=== PATIENT | male | born 1960 | race Caucasian/White ===

== ENCOUNTER 2019-08-21 12:38 | Emergency (ER) | payer MEDICARE, MEDICAID, SELFPAY ==
[2019-08-21 13:05] VITALS: BP 110/73; PULSE 85; RESP 16; TEMP 37.5; O2SAT 98; BMI 18.6
[2019-08-21 14:48] LABS: Basophils % 0.2 %; Hematocrit 42.3 % (42.0-52.0); Hemoglobin 13.9 g/dL (11.7-16.6); Lymphocytes # 1.3 10^3/uL (0.8-4.8); Lymphocytes % 8.3 %; Mean Corpuscular HGB Conc 32.9 g/dL (30.0-36.0); Mean Corpuscular Hemoglobin 28.8 pg (28.0-34.0); Mean Corpuscular Volume 87.8 fL (80-94); Mean Platelet Volume 9.1 fL (7.4-10.4); Monocytes # 0.7 10^3/uL (0.2-0.9); Monocytes % 4.7 %; Neutrophils # 13.7 10^3/uL (1.8-7.7); Neutrophils % 86.4 %; Nucleated Red Blood Cells % 0 %; Platelet Count 225 10^3/cmm (130-400); Red Blood Count 4.82 10^6/uL (4.1-5.3); Red Cell Distribution Width 12.9 % (12.1-15.1); White Blood Count 15.8 10^3/uL (4.0-10.0)
--- NOTE | 2019-08-21 15:11 | W.ED.MALEGU ---
HPI - Male Genitourinary General: Chief complaint: Urogenital-Male Stated complaint: uti Time Seen by Provider: 08/21/19 15:10 Source: patient and family Mode of arrival: ambulatory Limitations: no limitations History of Present Illness: HPI Narrative: Patient is a very nice 59-year-old male who presents to ED today with complaint of urinary retention starting yesterday. Patient tells me by this morning he was in extreme discomfort so sought evaluation at his PCP office. He states they placed a Streeter catheter and sent patient to the emergency department for further evaluation. Patient tells me he is having pain to bilateral testicles and the tip of his penis. He is complaining about dysuria. He does have a known history of BPH and normally does have to strain in order to urinate (states he must sit down and lean forward) and has had to previously self cath. He is supposed to be taking Flomax but has not been. He at one point was following up with Dr. Tellez however has not seen him in quite a while. states patient was running fevers yesterday of up to 102. MD Complaint: testicle pain, dysuria and other (urinary retention) Duration: constant Location: penis, right testicle and left testicle Quality: burning Relieving factors: other (slightly improved after streeter placement ) Associated symptoms: Reports dysuria and nausea; Deny hematuria Review of Systems Const: Reports: fever(s) (reported by ; afebrile here); Denies: chills or body aches Card: Denies: chest pain or palpitations Resp: Denies: dyspnea or productive cough GI: Reports: abdominal pain and nausea; Denies: diarrhea, constipation, change in bowel habits, pain on defecation, rectal pain, rectal swelling, rectal itching, change in stool character, hematochezia, melena or white/light colored stool : Reports: difficulty urinating, dysuria, urinary dribbling, testicular pain and other (urinary retention); Denies: flank pain, hematuria, genital lesions, penile discharge, testicular mass or scrotal swelling Musc: Denies: neck pain or back pain Skin/Breast: Denies: rash Neuro: Denies: headache(s), numbness in extremities, weakness in extremities or sensory changes PFS ED PFSH: Medical History (Updated 08/24/19 @ 04:42 by Maurizio Adam Pa, DO) Acute prostatitis Back pain BPH (benign prostatic hyperplasia) Cyst of spinal meninges Fracture of thumb, right, closed Hematuria Hip pain Insomnia Nausea and vomiting Neuralgia pudendal and sacral Normal colonoscopy 2013 Dr. Delarosa Statin intolerance Testicular pain Urinary retention Please placed Streeter catheter 08/28 Surgical History (Updated 08/24/19 @ 00:29 by Frankie Rand MD) H/O elbow surgery Right elbow reconstruction H/O thumb surgery Family History (Updated 08/24/19 @ 00:22 by Frankie Rand MD) Denies family history of Hyperlipidemia Lung disease Hypertension Social History (Updated 08/24/19 @ 01:23 by Frankie Rand MD) Smoking and tobacco status: former smoker Alcohol intake: never Substance/Drug Use: never Household members: spouse Housing: House Physical Exam Const: COMMON NORMALS: average body habitus, patient oriented x3, no limitations, healthy appearing, alert and well nourished GENERAL APPEARANCE: cooperative ORIENTATION/CONSCIOUSNESS: Yes oriented to person, Yes oriented to place and Yes oriented to time OTHER: appears uncomfortable HENMT: COMMON NORMALS: normocephalic and atraumatic HEAD & SCALP: normocephalic and atraumatic Resp: COMMON NORMALS: normal respiratory effort and clear to auscultation bilaterally AUSCULTATION: clear to auscultation bilaterally Cardio: COMMON NORMALS: regular rate and regular rhythm RATE: regular rate RHYTHM: regular rhythm GI: COMMON NORMALS: Normal to inspection, nondistended, normoactive bowel sounds present, Soft to palpation, non-tender, No hepatosplenomegaly present and no masses PALPATION: Yes Soft to palpation and Yes No hepatosplenomegaly present RECTAL EXAM: Yes prostate abnormal (firm extremely tender prostate ) : COMMON NORMALS: Yes no CVA tenderness BLADDER/KIDNEY EXAM: Yes catheter in place and Yes no CVA tenderness PENIS: normal penis MEATUS: meatus normal and other (has streeter placed currently) SCROTUM: Yes testes descended bilaterally TESTES: Yes testicular lie normal and No testicular swelling Back/Pelvis: COMMON NORMALS: no CVA tenderness Extremity: COMMON NORMALS: no clubbing, cyanosis or edema and no pedal edema Neuro: MIRI COMA SCALE: document GCS findings Miri coma scale eye opening: Spontaneous [place] coma scale verbal response: Orientated [place] coma scale motor response: Obey commands Miri coma scale total score: 15 COMMON NORMALS: patient oriented x3 SENSORIUM/ORIENTATION: Yes alert, Yes oriented to person, Yes oriented to place and Yes oriented to time Skin: COMMON NORMALS: no rashes or lesions noted GENERAL SKIN EXAM: no rashes or lesions noted Course Consultations: Consultation #1: Dr. Tellez-agrees with IV Levaquin given here; stated if patient is not septic he can be treated at home and recommends PO 750mg Levaquin, pain/nausea meds, and he will see early next week for re-evaluation Vital Signs: Vital signs: Vital Signs Temperature 99.5 F 08/21/19 13:05 Pulse Rate 71 08/21/19 17:46 Respiratory Rate 12 08/21/19 17:46 Blood Pressure 125/80 08/21/19 17:46 Pulse Oximetry 97 08/21/19 17:46 MDM - Male Lab Data: Labs: Lab Results 08/21/19 08/21/19 08/21/19 Range/Units 14:30 14:30 14:30 WBC 15.8 H (4.0-10.0) 10^3/ uL RBC 4.82 (4.1-5.3) 10^6/u L Hgb 13.9 (11.7-16.6) g/dL Hct 42.3 (42.0-52.0) % MCV 87.8 (80-94) fL MCH 28.8 (28.0-34.0) pg MCHC 32.9 (30.0-36.0) g/dL RDW 12.9 (12.1-15.1) % Plt Count 225 (130-400) 10^3/c mm MPV 9.1 (7.4-10.4) fL Neut % (Auto) 86.4 % Lymph % (Auto) 8.3 % [place] % (Auto) 4.7 % Eos % (Auto) 0.0 % Baso % (Auto) 0.2 % Neut # (Auto) 13.7 H (1.8-7.7) 10^3/u L Lymph # (Auto) 1.3 (0.8-4.8) 10^3/u L [place] # (Auto) 0.7 (0.2-0.9) 10^3/u L Eos # (Auto) 0.0 (0.0-0.8) 10^3/u L Baso # (Auto) 0.0 (0.0-0.1) 10^3/u L Nucleated RBC % (a uto) 0 % Nucleated RBCs # 0.0 /100WBC Sodium 137 (136-145) mmol/L Potassium 3.8 (3.5-5.1) mmol/L Chloride 98 (98-107) mmol/L Carbon Dioxide 24 (22-29) mmol/L Anion Gap 18.8 (5-19) BUN 13 (6-20) mg/dL Creatinine 1.0 (0.7-1.2) mg/dL GFR Calculation 77.0 L (90-130) mL/min Glucose 113 (65-115) mg/dL Calculated Osmolal ity 281 L (285-295) mOsm/k g Lactate 1.6 (0.5-2.2) mmol/L Calcium 10.3 (8.5-10.5) mg/dL Total Bilirubin 0.9 (0.15-1.2) mg/dL AST 15 (0-40) U/L ALT 6 (0-41) U/L Alkaline Phosphata se 97 (40-130) IU/L Total Protein 7.9 (6.6-8.7) g/dL Albumin 4.7 (3.5-5.2) g/dL Globulin 3.2 (1.3-4.6) g/dL Urine Color (Yellow) Urine Appearance (CLEAR) Urine pH (5-7) Ur Specific Gravit y (1.005-1.030) Urine Protein (Negative) Urine Glucose (UA) (Normal) Urine Ketones (Negative) Urine Blood (Negative) Urine Nitrate (Negative) Urine Bilirubin (NEGATIVE) Urine Urobilinogen (Negative) mg/dL Ur Leukocyte Samantha ase (Negative) Urine RBC (0-2) /hpf Urine WBC (0-5) /hpf Ur Squamous Epith Cells (0-5) Amorphous Sediment Urine Bacteria (NONE) 08/21/19 Range/Units 15:18 WBC (4.0-10.0) 10^3/ uL RBC (4.1-5.3) 10^6/u L Hgb (11.7-16.6) g/dL Hct (42.0-52.0) % MCV (80-94) fL MCH (28.0-34.0) pg MCHC (30.0-36.0) g/dL RDW (12.1-15.1) % Plt Count (130-400) 10^3/c mm MPV (7.4-10.4) fL Neut % (Auto) % Lymph % (Auto) % [place] % (Auto) % Eos % (Auto) % Baso % (Auto) % Neut # (Auto) (1.8-7.7) 10^3/u L Lymph # (Auto) (0.8-4.8) 10^3/u L [place] # (Auto) (0.2-0.9) 10^3/u L Eos # (Auto) (0.0-0.8) 10^3/u L Baso # (Auto) (0.0-0.1) 10^3/u L Nucleated RBC % (a uto) % Nucleated RBCs # /100WBC Sodium (136-145) mmol/L Potassium (3.5-5.1) mmol/L Chloride (98-107) mmol/L Carbon Dioxide (22-29) mmol/L Anion Gap (5-19) BUN (6-20) mg/dL Creatinine (0.7-1.2) mg/dL GFR Calculation (90-130) mL/min Glucose (65-115) mg/dL Calculated Osmolal ity (285-295) mOsm/k g Lactate (0.5-2.2) mmol/L Calcium (8.5-10.5) mg/dL Total Bilirubin (0.15-1.2) mg/dL AST (0-40) U/L ALT (0-41) U/L Alkaline Phosphata se (40-130) IU/L Total Protein (6.6-8.7) g/dL Albumin (3.5-5.2) g/dL Globulin (1.3-4.6) g/dL Urine Color Dark yellow (Yellow) Urine Appearance Cloudy (CLEAR) Urine pH 5 (5-7) Ur Specific Gravit y 1.015 (1.005-1.030) Urine Protein 1+ H (Negative) Urine Glucose (UA) Norm (Normal) Urine Ketones 2+ H (Negative) Urine Blood 3+ H (Negative) Urine Nitrate Positive H (Negative) Urine Bilirubin 1+ H (NEGATIVE) Urine Urobilinogen 1 H (Negative) mg/dL Ur Leukocyte Samantha ase 2+ H (Negative) Urine RBC 25-40 H (0-2) /hpf Urine WBC Too numerous to c nt H (0-5) /hpf Ur Squamous Epith Cells 0-4 H (0-5) Amorphous Sediment 2+ Urine Bacteria 2+ H (NONE) Discharge Plan Discharge Patient Disposition: Home, Self-Care Clinical Impression: Acute prostatitis, Urinary retention Condition: Stable Prescriptions: New levofloxacin [Levaquin] 750 mg tablet 750 mg PO DAILY 7 Days Qty: 7 RF: 0 hydrocodone-acetaminophen 7.5-325 mg tablet 1 tab PO Q6H PRN (Reason: pain) Qty: 15 RF: 0 ondansetron HCl [Zofran] 4 mg tablet 4 mg PO Q6H PRN (Reason: nausea and vomiting) Qty: 14 RF: 0 No Action tamsulosin [Flomax] 0.4 mg capsule 0.4 mg PO DAILY RF: 0 trazodone 150 mg tablet 150 mg PO BEDTIME RF: 0 gabapentin 800 mg tablet See Rx Instructions .ROUTE .COMPLEX RF: 0 metronidazole 500 mg tablet 500 mg PO Q8H 7 Days Qty: 21 RF: 0 Discharge Orders: Discharge Order (Routine); Ordered 08/21/19 Ordered By: Becky Jara Referrals: Eleanor Clark MD [Primary Care Provider] - Patient Instructions: Prostatitis (Acute), Urinary Retention Activity Restrictions/Additional Instructions: As discussed case management should contact you tomorrow and set you up with your appointment to see Dr. Tellez. You need to return to the emergency department immediately for worsening fevers, generally feeling ill, vomiting or inability to keep down your antibiotics, your Streeter catheter not draining appropriately, or any other concerns you may have. Discharge Date/Time: 08/21/19 17:47 Coding Level of Care Code ED Capital Equipment Specialist for Kayla Fwzach Exam Comprehensive
[2019-08-21 15:14] VITALS: BP 122/87; PULSE 76; RESP 23; O2SAT 99
[2019-08-21] MEDS: sodium chloride 0.9% 1,000 ML 999 ML IV (15:27)
[2019-08-21 15:28] VITALS: RESP 16
[2019-08-21] MEDS: ondansetron 2 mg/ML SDV 2 mL 4 MG IVP (15:28)
[2019-08-21] MEDS: morphine 4 mg/mL SDV 1 mL IVP (15:28)
[2019-08-21 15:30] VITALS: BP 130/85; PULSE 72; RESP 17; O2SAT 98
[2019-08-21 15:33] LABS: Lactate (Lactic Acid level) 1.6 mmol/L (0.5-2.2)
[2019-08-21 15:35] LABS: Alanine Aminotransferase 6 U/L (0-41); Albumin Level 4.7 g/dL (3.5-5.2); Alkaline Phosphatase 97 IU/L (40-130); Anion Gap 18.8 (5-19); Aspartate Amino Transferase 15 U/L (0-40); Blood Urea Nitrogen 13 mg/dL (6-20); Calcium 10.3 mg/dL (8.5-10.5); Carbon Dioxide 24 mmol/L (22-29); Chloride 98 mmol/L (98-107); Globulin 3.2 g/dL (1.3-4.6); Glucose 113 mg/dL (65-115); Osmolality Calculated 281 mOsm/kg (285-295); Potassium 3.8 mmol/L (3.5-5.1); Sodium 137 mmol/L (136-145); Total Bilirubin 0.9 mg/dL (0.15-1.2); Total Protein 7.9 g/dL (6.6-8.7)
[2019-08-21 15:57] LABS: Bilirubin Urine 1+ (NEGATIVE); Blood Urine 3+ (Negative); Glucose Urine UA Norm (Normal); Ketones Urine 2+ (Negative); Leukocyte Esterase Urine 2+ (Negative); Nitrate Urine Positive (Negative); Protein Urine 1+ (Negative); Specific Gravity, Urine 1.015 (1.005-1.030); Urine Appearance Cloudy (CLEAR); Urine Color Dark Yellow (Yellow); Urobilinogen Urine 1 mg/dL (Negative); pH Urine 5 (5-7)
[2019-08-21 16:07] LABS: Add Urine Culture? Yes; Amorphous Sediment Urine 2+; Bacteria Urine 2+; RBC Urine 25-40 /hpf (0-2); Squamous Epithelial Cell Urine 0-4 (0-5); WBC Urine TOO NUMEROUS TO CNT /hpf (0-5)
[2019-08-21] MEDS: levofloxacin-dextrose 5 % 500 MG/100 ML PREMIX 100 MG IV (16:30)
[2019-08-21 16:31] VITALS: BP 130/81; PULSE 77; RESP 13; O2SAT 97
[2019-08-21 17:46] VITALS: BP 125/80; PULSE 71; RESP 12; O2SAT 97
--- NOTE | 2019-08-25 10:36 | DCPLANNER ---
corporate quality assurance manager had message to schedule a follow up appointment for patient with Dr. Tellez. corporate quality assurance manager called the office of Dr. Tellez, spoke with Oma, gave clinic patients information. corporate quality assurance manager was told that patients information would be printed and reviewed. Clinic will call patient with appointment information.
--- NOTE | 2019-08-26 08:37 | DCPLANNER ---
Patient has a follow up appointment scheduled for Sunday, September 03, 2019 at 3:15. Clinic will call patient with appointment information.
--- NOTE | 2019-09-04 14:57 | DCPLANNER ---
Patient did attend appointment scheduled for 09.03.[address] Tellez.
== END 2019-08-21 17:47 | disposition home or self-care (01) ==
PROVIDERS: Emergency Provider Physician Assistant; PCP Family Medicine
DX: N41.0 Acute prostatitis (principal); R33.9 Retention of urine, unspecified; Z87.891 Personal history of nicotine dependence
CPT/HCPCS: 12345; 36415; 51798; 80053; 81001; 81003; 83605; 84153; 85025; 87040; 87077; 87086; 87186; 96365; 96375; 99283; 99284; J1956; J2270; J2405; J7030

== ENCOUNTER 2019-08-23 21:28 | Inpatient (IN) | payer MEDICARE, MEDICAID, SELFPAY ==
[2019-08-23 21:39] VITALS: BP 129/80; PULSE 65; RESP 16; TEMP 37.5; O2SAT 98; BMI 18.6
--- NOTE | 2019-08-23 21:47 | XRR_ITS ---
PROCEDURE INFORMATION: Exam: XR Chest, 1 View Exam date and time: 08/23/2019 10:02 PM Age: 59 years old Clinical indication: Fever and other: Generalized weakness; Patient HX: C/O generalized weakness and fever x 2 days TECHNIQUE: Imaging protocol: XR of the chest Views: 1 view. COMPARISON: No relevant prior studies available. FINDINGS: Lungs: Unremarkable. No consolidation. Pleural space: Unremarkable. No pleural effusion. No pneumothorax. Heart/Mediastinum: Unremarkable. No cardiomegaly. Bones/joints: Unremarkable. XR/XR chest 1V portable [id number] IMPRESSION: No acute findings.
--- NOTE | 2019-08-23 21:55 | CTR_ITS ---
PROCEDURE INFORMATION: Exam: CT Abdomen And Pelvis With Contrast Exam date and time: 08/23/2019 10:03 PM Age: 59 years old Clinical indication: Fever and nausea; Patient HX: C/O fever, nausea, weakness, groin pain x 2 days; Additional info: Abd pain fever TECHNIQUE: Imaging protocol: Computed tomography of the abdomen and pelvis with intravenous contrast. Radiation optimization: All CT scans at this facility use at least one of these dose optimization techniques: automated exposure control; mA and/or kV adjustment per patient size (includes targeted exams where dose is matched to clinical indication); or iterative reconstruction. Contrast material: OMNI 300; Contrast volume: 95 ml; Contrast route: INTRAVENOUS (IV); COMPARISON: US Renal Kidney Structu* [id number] 06/28/2015 7:57 AM RADIATION DOSE METRICS: Total DLP (mGy-cm): 538.8 FINDINGS: Tubes, catheters and devices: A balloon bladder catheter is present. Lungs: There is subpleural atelectasis of the dependent portions of the lungs. Liver: There is a diffuse decrease in hepatic parenchymal density, consistent with fatty infiltration. Gallbladder and bile ducts: There is no common bile duct dilation. Pancreas: Normal. No ductal dilation. Spleen: Normal. No splenomegaly. Adrenals: Normal. No mass. Kidneys and ureters: There is no evidence of hydronephrosis. There is no evidence of renal calcifications. Stomach and bowel: There there is marked wall thickening and edema of the distal stomach and duodenum concerning for duodenitis. There is a small amount of fluid adjacent to the duodenum and stomach which is probable reactive change. There is no evidence of intestinal perforation or obstruction. There is no evidence of colitis/diverticulitis. Some of the loops of small bowel in the lower abdomen and pelvis are slightly distended with fluid with mild wall thickening compatible with mild enteritis. Appendix: No evidence of appendicitis. Intraperitoneal space: There is no free intraperitoneal air. Vasculature: The aorta demonstrates mild atherosclerotic calcification. Lymph nodes: Unremarkable.No enlarged lymph nodes. Bladder: The bladder is decompressed.A normal appendix is identified. Reproductive: Unremarkable as visualized. Bones/joints: There are [id number] degenerative changes in the spine. No acute abnormality. Soft tissues: Unremarkable. CT/CT abdomen pelvis w con* [id number] IMPRESSION: 1. There there is marked wall thickening and edema of the distal stomach and duodenum concerning for severe duodenitis. There is adjacent small amount of fluid but no free air or perforation. 2. Some of the loops of small bowel in the lower abdomen and pelvis are slightly distended with fluid with mild wall thickening compatible with mild enteritis. The remaining loops of bowel have an appropriate appearance. Radiation Dose CTDIVOL = (mGy): DLP = 538.8 (mGy-cm)
--- NOTE | 2019-08-23 21:58 | ED_ITS ---
HPI - Fever General: Chief Complaint: Fever Stated Complaint: GENERAL WEAKNESS/ FEVER Time Seen by Provider: 08/23/19 21:42 History of Present Illness: HPI Narrative: 59-year-old male. He was here 2 days ago complaining of urinary retention, and fever. He was diagnosed with acute prostatitis. He returns today with continued fevers, and inability to tolerate oral intake including his medication. He is very uncomfortable. He states his belly feels swollen and painful. His Hough bag is draining appropriately he says. He is vomited multiple times today. MD elicited complaint: fever, weakness and other (abdominal pain) Onset (ago): day(s) Relieving factors: nothing Associated symptoms: Reports abdominal pain, dysuria, nausea and vomiting; Deny chills, chest pain, confusion, diarrhea, headache(s), short of breath or sinus pain Review of Systems Const: Denies: fever(s) or chills Eyes: Denies: change in vision or blurry vision ENMT: Denies: odynophagia, swelling of lips/tongue, bleeding gums, dental pain, change in hearing, epistaxis, post nasal drip or sinus pain Card: Denies: chest pain, palpitations, irregular heart rhythm, edema, swelling of feet/ankles, dyspnea on exertion or orthopnea Resp: Denies: dyspnea, productive cough, non-productive cough or wheezing GI: Reports: abdominal pain, nausea and vomiting; Denies: diarrhea : Reports: dysuria Musc: Denies: neck pain, back pain, joint redness or joint warmth Skin/Breast: Denies: rash, pruritus or erythema Neuro: Denies: headache(s), dizziness, vertigo, confusion or seizure-like activity Psych: Denies: anxiety PFS ED PFSH: Medical History (Updated 08/24/19 @ 04:42 by Maurizio Winn DO) Acute prostatitis Back pain BPH (benign prostatic hyperplasia) Cyst of spinal meninges Fracture of thumb, right, closed Hematuria Hip pain Insomnia Nausea and vomiting Neuralgia pudendal and sacral Normal colonoscopy 2013 Dr. Delarosa Statin intolerance Testicular pain Urinary retention Please placed Hough catheter 08/28 Surgical History (Updated 08/24/19 @ 00:29 by Frankie Rand MD) H/O elbow surgery Right elbow reconstruction H/O thumb surgery Family History (Updated 08/24/19 @ 00:22 by Frankie Rand MD) Denies family history of Hyperlipidemia Lung disease Hypertension Social History (Updated 08/24/19 @ 01:23 by Frankie Rand MD) Smoking and tobacco status: former smoker Alcohol intake: never Substance/Drug Use: never Household members: spouse Housing: House Physical Exam Const: GENERAL APPEARANCE: well developed ORIENTATION/CONSCIOUSNESS: Yes oriented to person, Yes oriented to place and Yes oriented to time HENMT: COMMON NORMALS: normocephalic, external ears normal and Normal external nose present HEAD & SCALP: normocephalic; no scalp tenderness FACE & SINUS: normal facial exam NOSE: Normal external nose present and No nasal discharge present EXTERNAL EAR: Yes external ears normal Eye: COMMON NORMALS: Equal, round and reactive pupils present, EOMs intact bilaterally and conjunctivae normal EYELID: eyelids normal CONJUNCTIVA: Yes conjunctivae normal PUPIL: Yes Equal, round and reactive pupils present Neck/C-Spine: GENERAL: No tracheal deviation Chest: COMMONS NORMALS: normal inspection of the chest CHEST: No tenderness Resp: COMMON NORMALS: clear to auscultation bilaterally EFFORT & INSPECTION: No tachypneic, No respiratory distress, No retractions, No uses accessory muscles and No tracheal deviation AUSCULTATION: clear to auscultation bilaterally, no rhonchi, no wheezes and lung sounds not diminished Cardio: COMMON NORMALS: regular rate and regular rhythm RATE: regular rate RHYTHM: regular rhythm HEART SOUNDS: no murmurs PERIPHERAL PULSES: radial pulses present GI: INSPECTION: No abdominal distension AUSCULTATION: No Hyperactive bowel sounds present and No Hypoactive bowel sounds present PALPATION: Yes Tenderness to palpation present (GI) Details: LUQ, RUQ and other (Epigastric), No Guarding due to palpation present (GI) and No Rigid due to palpation PERCUSSION: no dullness to percussion and no tympanic to percussion Neuro: SENSORIUM/ORIENTATION: Yes oriented to person, Yes oriented to place and Yes oriented to time Psych: COMMON NORMALS: mental status grossly normal Skin: COMMON NORMALS: no rashes or lesions noted GENERAL SKIN EXAM: no rashes or lesions noted Course Consultations: Consultation #1: jovan Vital Signs: Vital signs: Vital Signs Temperature 98.9 F 08/24/19 02:21 Pulse Rate 53 L 08/24/19 02:21 Respiratory Rate 18 08/24/19 02:21 Blood Pressure 138/82 08/24/19 02:21 Pulse Oximetry 96 08/24/19 02:21 MDM - Fever MDM Narrative: Medical decision making narrative: Patient with prior visit, diagnosed with urinary retention, and acute prostatitis. His leg bag of his F oley continues to put out appropriate amounts of urine. His creatinine is 0.8. His urine is clearing by urinalysis. His white blood cell count is 7.5. He, however, significantly tender in his epigastrium, not necessarily his lower belly, and has been vomiting intractably today. His CT scan shows intense duodenitis. There is no perforation. The be admitted for fluid resuscitation, symptomatic treatment, and antibiotics. Hospitalist agrees. Lab Data: Labs: Lab Results 08/23/19 08/23/19 08/23/19 Range/Units 22:12 22:12 22:12 WBC 8.3 (4.0-10.0) 10^3/ uL RBC 4.09 L (4.1-5.3) 10^6/u L Hgb 12.0 (11.7-16.6) g/dL Hct 36.9 L (42.0-52.0) % MCV 90.2 (80-94) fL MCH 29.3 (28.0-34.0) pg MCHC 32.5 (30.0-36.0) g/dL RDW 12.8 (12.1-15.1) % Plt Count 195 (130-400) 10^3/c mm MPV 9.1 (7.4-10.4) fL Neut % (Auto) 71.2 % Lymph % (Auto) 18.9 % [place] % (Auto) 9.3 % Eos % (Auto) 0.2 % Baso % (Auto) 0.2 % Neut # (Auto) 5.9 (1.8-7.7) 10^3/u L Lymph # (Auto) 1.6 (0.8-4.8) 10^3/u L [place] # (Auto) 0.8 (0.2-0.9) 10^3/u L Eos # (Auto) 0.0 (0.0-0.8) 10^3/u L Baso # (Auto) 0.0 (0.0-0.1) 10^3/u L Nucleated RBC % (a uto) 0 % Nucleated RBCs # 0.0 /100WBC Sodium 139 (136-145) mmol/L Potassium 3.5 (3.5-5.1) mmol/L Chloride 102 (98-107) mmol/L Carbon Dioxide 20 L (22-29) mmol/L Anion Gap 20.5 H (5-19) BUN 10 (6-20) mg/dL Creatinine 0.8 (0.7-1.2) mg/dL GFR Calculation 99.6 (90-130) mL/min Glucose 104 (65-115) mg/dL Calculated Osmolal ity 284 L (285-295) mOsm/k g Lactate 1.4 (0.5-2.2) mmol/L Calcium 8.9 (8.5-10.5) mg/dL Total Bilirubin 0.4 (0.15-1.2) mg/dL AST 12 (0-40) U/L ALT 7 (0-41) U/L Alkaline Phosphata se 75 (40-130) IU/L C-Reactive Protein 96.1 H (0.0-4.9) mg/L Total Protein 6.8 (6.6-8.7) g/dL Albumin 3.7 (3.5-5.2) g/dL Globulin 3.1 (1.3-4.6) g/dL Urine Color (Yellow) Urine Appearance (CLEAR) Urine pH (5-7) Ur Specific Gravit y (1.005-1.030) Urine Protein Urine Glucose (UA) Urine Ketones Urine Blood Urine Nitrate Urine Bilirubin Urine Urobilinogen Ur Leukocyte Samantha ase Urine RBC (0-2) /hpf Urine WBC (0-5) /hpf Ur Squamous Epith Cells (0-5) Ur Transition Epit h Cell /hpf Amorphous Sediment Urine Bacteria (NONE) Urine Mucus 08/23/19 Range/Units 23:23 WBC (4.0-10.0) 10^3/ uL RBC (4.1-5.3) 10^6/u L Hgb (11.7-16.6) g/dL Hct (42.0-52.0) % MCV (80-94) fL MCH (28.0-34.0) pg MCHC (30.0-36.0) g/dL RDW (12.1-15.1) % Plt Count (130-400) 10^3/c mm MPV (7.4-10.4) fL Neut % (Auto) % Lymph % (Auto) % [place] % (Auto) % Eos % (Auto) % Baso % (Auto) % Neut # (Auto) (1.8-7.7) 10^3/u L Lymph # (Auto) (0.8-4.8) 10^3/u L [place] # (Auto) (0.2-0.9) 10^3/u L Eos # (Auto) (0.0-0.8) 10^3/u L Baso # (Auto) (0.0-0.1) 10^3/u L Nucleated RBC % (a uto) % Nucleated RBCs # /100WBC Sodium (136-145) mmol/L Potassium (3.5-5.1) mmol/L Chloride (98-107) mmol/L Carbon Dioxide (22-29) mmol/L Anion Gap (5-19) BUN (6-20) mg/dL Creatinine (0.7-1.2) mg/dL GFR Calculation (90-130) mL/min Glucose (65-115) mg/dL Calculated Osmolal ity (285-295) mOsm/k g Lactate (0.5-2.2) mmol/L Calcium (8.5-10.5) mg/dL Total Bilirubin (0.15-1.2) mg/dL AST (0-40) U/L ALT (0-41) U/L Alkaline Phosphata se (40-130) IU/L C-Reactive Protein (0.0-4.9) mg/L Total Protein (6.6-8.7) g/dL Albumin (3.5-5.2) g/dL Globulin (1.3-4.6) g/dL Urine Color [place] (Yellow) Urine Appearance Clear (CLEAR) Urine pH 7 (5-7) Ur Specific Gravit y 1.015 (1.005-1.030) Urine Protein Not Reportable Urine Glucose (UA) Not Reportable Urine Ketones Not Reportable Urine Blood Not Reportable Urine Nitrate Not Reportable Urine Bilirubin Not Reportable Urine Urobilinogen Not Reportable Ur Leukocyte Samantha ase Not Reportable Urine RBC 80-100 H (0-2) /hpf Urine WBC 5-10 H (0-5) /hpf Ur Squamous Epith Cells None (0-5) Ur Transition Epit h Cell None /hpf Amorphous Sediment Not Reportable Urine Bacteria 1+ H (NONE) Urine Mucus 2+ Discharge Plan Discharge Patient Disposition: Admitted As Inpatient Admit Provider: Frankie Rand Clinical Impression: Acute duodenitis Intractable vomiting Qualifiers: Vomiting type: unspecified Nausea presence: with nausea Qualified Code(s): R11.2 - Nausea with vomiting, unspecified Condition: Stable Interventions: ED Discharge Assessment Last Done: 08/24/19 01:53 ED Charges Last Done: 08/24/19 01:53 Discharge Date/Time: 08/24/19 01:54 Coding Level of Care Code ED Tax Accountant for Aprilg Fwd Exam Comprehensive
[2019-08-23 22:16] LABS: Basophils % 0.2 %; Eosinophils % 0.2 %; Hematocrit 36.9 % (42.0-52.0); Lymphocytes # 1.6 10^3/uL (0.8-4.8); Lymphocytes % 18.9 %; Mean Corpuscular HGB Conc 32.5 g/dL (30.0-36.0); Mean Corpuscular Hemoglobin 29.3 pg (28.0-34.0); Mean Corpuscular Volume 90.2 fL (80-94); Mean Platelet Volume 9.1 fL (7.4-10.4); Monocytes # 0.8 10^3/uL (0.2-0.9); Monocytes % 9.3 %; Neutrophils # 5.9 10^3/uL (1.8-7.7); Neutrophils % 71.2 %; Nucleated Red Blood Cells % 0 %; Platelet Count 195 10^3/cmm (130-400); Red Blood Count 4.09 10^6/uL (4.1-5.3); Red Cell Distribution Width 12.8 % (12.1-15.1); White Blood Count 8.3 10^3/uL (4.0-10.0)
[2019-08-23 22:29] VITALS: RESP 20
[2019-08-23] MEDS: ketorolac 30 mg/mL INJ IVP (22:29)
[2019-08-23] MEDS: morphine 4 mg/mL SDV 1 mL IVP (22:29)
[2019-08-23 22:30] VITALS: BP 145/77; PULSE 58; RESP 18; O2SAT 98
[2019-08-23] MEDS: sodium chloride 0.9% 1,000 ML 999 ML IV (22:30)
[2019-08-23] MEDS: ondansetron 2 mg/ML SDV 2 mL 4 MG IVP (22:30)
--- NOTE | 2019-08-23 22:37 | PC.NURSE ---
Pt. to CT scan via stretcher, with tech
[2019-08-23 22:39] LABS: Lactate (Lactic Acid level) 1.4 mmol/L (0.5-2.2)
[2019-08-23] MEDS: iohexol 300 mg/mL 100 mL Btl IV (22:39)
[2019-08-23 23:45] LABS: Specific Gravity, Urine 1.015 (1.005-1.030); Urine Appearance Clear (CLEAR); Urine Color Orange (Yellow); pH Urine 7 (5-7)
[2019-08-23 23:48] LABS: Add Urine Microscopic? YES
[2019-08-23 23:55] LABS: Add Urine Culture? Yes; Bacteria Urine 1+; Mucus Urine 2+; RBC Urine 80-100 /hpf (0-2)
[2019-08-24] VITALS (8 sets, daily range): BP systolic 132–164; BP diastolic 70–96; PULSE 44–56; RESP 18–20; TEMP 36.8–37.2; O2SAT 94–98
--- NOTE | 2019-08-24 00:15 | P.HP_ITS ---
Providers/Chief Complaint Primary Care Provider: Eleanor Clark MD Chief Complaint: GENERAL WEAKNESS/ FEVER History of Present Illness Mika Alexander is a 59 year old male does not carry significant past medical history other than recent acute prostatitis episode came in with chief complaint of worsening abdominal pain. Patient is stating that he has been having chronic pelvic pain which got worse recently for which she was evaluated by his PCP on , Hough catheter was placed because of urine retention he was started on Levaquin for possible prostatitis. He has taken antibiotics only for 2 days, yesterday he started experiencing loose stools, he has had multiple episodes, on his temperature was 102, on Sunday 101, he was trying to avoid coming to the hospital. Because of worsening abdominal pain and cramps he decided to come to the ED today. He has been feeling nauseous, only experienced one episode of emesis. He is denying smoking cigarettes or using marijuana. Does not drink alcohol. Today he has been afebrile. Patient is stating that he mostly stays home and he has not been exposed to sick patients. Diagnostics in the ER revealed blood pressure 159 systolic, afebrile, leukocyte 8.3, lactic 1.4, CRP 96, PSA [address] CT abdomen revealed enteritis/duodenitis without perforation or free air In the ER he received 4 mg of morphine, 1 L normal saline and Zosyn 1 dose Review of Systems Const: Reports: fever(s), chills, body aches, change in appetite, fatigue and malaise Eyes: Denies: change in vision or photophobia ENMT: Denies: throat pain Card: Denies: chest pain Resp: Denies: dyspnea GI: Reports: abdominal pain, nausea, vomiting and diarrhea : Denies: flank pain or difficulty urinating Musc: Denies: neck pain Skin/Breast: Denies: rash Neuro: Denies: headache(s) Psych: Denies: anxiety Endo: Denies: polyuria Alonso/Lymph: Denies: easy bruising All/Imm: Denies: urticaria Medications/Allergies Home Medications Medication Instructions Recorded Confirmed Last Taken Type gabapentin 800 mg tablet See Rx Instructions .ROUTE .COMPLEX 08/21/19 08/21/19 08/21/19 History hydrocodone-acetaminophen 1 tab PO Q6H PRN #15 tab 08/21/19 Unknown Rx levofloxacin [Levaquin] 750 mg PO DAILY 7 Days #7 tab 08/21/19 Unknown Rx ondansetron HCl [Zofran] 4 mg PO Q6H PRN #14 tab 08/21/19 Unknown Rx tamsulosin 0.4 mg capsule 0.4 mg PO DAILY 08/21/19 08/21/19 08/20/19 History trazodone 150 mg tablet 150 mg PO BEDTIME 08/21/19 08/21/19 08/20/19 History Allergies Allergy/AdvReac Type Severity Reaction Status Date / Time No Known Allergies Allergy Unverified 08/21/19 09:35 PFSH Acute PFSH: Medical History (Updated 08/24/19 @ 00:29 by Frankie Rand MD) Acute prostatitis Back pain BPH (benign prostatic hyperplasia) Cyst of spinal meninges Fracture of thumb, right, closed Hematuria Hip pain Insomnia Nausea and vomiting Neuralgia pudendal and sacral Normal colonoscopy 2013 Dr. Delarsoa Statin intolerance Testicular pain Urinary retention Please placed Hough catheter 08/28 Surgical History (Updated 08/24/19 @ 00:29 by Frankie Rand MD) H/O elbow surgery Right elbow reconstruction H/O thumb surgery Family History (Updated 08/24/19 @ 00:22 by Frankie Rand MD) Denies family history of Hyperlipidemia Lung disease Hypertension Social History (Updated 08/24/19 @ 01:23 by Frankie Rand MD) Smoking and tobacco status: former smoker Alcohol intake: never Substance/Drug Use: never Household members: spouse Housing: House Vitals/I&O/Wt Last Vital Signs Temp 99.5 F 08/23/19 21:39 Pulse 58 L 08/23/19 22:30 Resp 18 08/23/19 22:30 BP 145/77 08/23/19 22:30 Pulse Ox 98 08/23/19 22:30 Weight last 48 hrs Weight 58.967 kg Physical Exam Narrative: EXAM NARRATIVE: Head to toe examination Patient is laying in his bed without acute distress S1, S2 no signs of heart failure or tachycardia Abdomen has mild guarding with tenderness to deep palpation around mid epigastric and right lower quadrant area, bowel sounds present, no CVA tenderness Lungs are clear to auscultation Neurological nonfocal exam EOMI, PERRLA Skin does not transfer ischemia getting ulcer Clinically looks dehydrated Appropriate mood and affect Data : 08/23/19 22:12 08/23/19 22:12 Micro: Microbiology 08/23/19 22:13 Blood Culture - Preliminary Blood SPECIMEN COLLECTED 08/23/19 22:12 Blood Culture - Preliminary Blood SPECIMEN COLLECTED A&P Assessment and plan (1) Duodenitis: Status: Acute (2) Enteritis: Status: Acute (3) Prostatitis: Status: Acute (4) Nausea and vomiting: Status: Acute Additional A&P Information Duodenitis/enteritis Acute episode after using Levaquin for prostatitis We will rule out C. difficile as patient complained of diarrhea initially more than 3 loose stools, fever abdominal pain CT abdomen results reviewed I would use Zosyn for now Stool studies C. difficile panel N.p.o. Dextrose half-normal saline maintenance rate Prostatitis Zosyn would cover for E. coli adequately which is the most common organism in this age group, no previous history of STDs, in a monogamous relationship Currently afebrile no signs of sepsis Persistent hematuria and BPH: Hough catheter draining concentrated urine Tamsulosin, PSA 17 Outpatient follow-up with Dr. Tellez for persistent hematuria and urine retention Former smoker Full code N.p.o. DVT prophylaxis Lovenox Attestations Medical Necessity Statement*: Anticipating stay in the hospital cross more than 2 midnights currently needing IV antibiotics for duodenitis and prostatitis, Time Spent in Patient Care: (>than 50% of time spent in counselling and/or direct pt care on unit) . 50mins Coding Level of Care Code Acute Host Coordinator for [facility] Fw Diagnoses Duodenitis K29.80 Enteritis K52.9 Prostatitis N41.9 Nausea and vomiting R11.2
[2019-08-24 00:56] LABS: Alanine Aminotransferase 7 U/L (0-41); Albumin Level 3.7 g/dL (3.5-5.2); Alkaline Phosphatase 75 IU/L (40-130); Anion Gap 20.5 (5-19); Aspartate Amino Transferase 12 U/L (0-40); Blood Urea Nitrogen 10 mg/dL (6-20); C Reactive Protein 96.1 mg/L (0.0-4.9); Calcium 8.9 mg/dL (8.5-10.5); Carbon Dioxide 20 mmol/L (22-29); Chloride 102 mmol/L (98-107); Globulin 3.1 g/dL (1.3-4.6); Glomerular Filtration Rate 99.6 mL/min (90-130); Glucose 104 mg/dL (65-115); Osmolality Calculated 284 mOsm/kg (285-295); Potassium 3.5 mmol/L (3.5-5.1); Sodium 139 mmol/L (136-145); Total Bilirubin 0.4 mg/dL (0.15-1.2); Total Protein 6.8 g/dL (6.6-8.7)
[2019-08-24] MEDS: piperacillin-tazobactam 3.375 GM in sodium chloride 0.9% (plus) 50 ML IV ×2 (01:21→09:01)
[2019-08-24] MEDS: HYDROmorphone 1 mg/mL INJ 1 mL IVP (01:21)
[2019-08-24] MEDS: enoxaparin 40 mg/0.4 mL Syringe SUBCUT (02:42)
[2019-08-24] MEDS: D5-NS 0.45% + KCL 20 mEq 20 MEQ/1,000 ML BAG 75 MEQ IV (02:42)
[2019-08-24 04:18] LABS: Basophils % 0.3 %; Eosinophils % 0.3 %; Hematocrit 34.7 % (42.0-52.0); Hemoglobin 11.1 g/dL (11.7-16.6); Lymphocytes # 1.5 10^3/uL (0.8-4.8); Lymphocytes % 20.1 %; Mean Corpuscular Hemoglobin 28.7 pg (28.0-34.0); Mean Corpuscular Volume 89.7 fL (80-94); Mean Platelet Volume 10.3 fL (7.4-10.4); Monocytes # 0.7 10^3/uL (0.2-0.9); Monocytes % 9.4 %; Neutrophils # 5.2 10^3/uL (1.8-7.7); Neutrophils % 69.6 %; Nucleated Red Blood Cells % 0 %; Platelet Count 193 10^3/cmm (130-400); Red Blood Count 3.87 10^6/uL (4.1-5.3); Red Cell Distribution Width 12.8 % (12.1-15.1); White Blood Count 7.5 10^3/uL (4.0-10.0)
[2019-08-24 05:46] LABS: Alanine Aminotransferase 6 U/L (0-41); Albumin Level 3.1 g/dL (3.5-5.2); Alkaline Phosphatase 63 IU/L (40-130); Anion Gap 14.7 (5-19); Aspartate Amino Transferase 11 U/L (0-40); Blood Urea Nitrogen 10 mg/dL (6-20); Calcium 8.5 mg/dL (8.5-10.5); Carbon Dioxide 22 mmol/L (22-29); Chloride 106 mmol/L (98-107); Globulin 2.6 g/dL (1.3-4.6); Glomerular Filtration Rate 99.6 mL/min (90-130); Glucose 115 mg/dL (65-115); Osmolality Calculated 285 mOsm/kg (285-295); Potassium 3.7 mmol/L (3.5-5.1); Sodium 139 mmol/L (136-145); Total Bilirubin 0.4 mg/dL (0.15-1.2); Total Protein 5.7 g/dL (6.6-8.7)
--- NOTE | 2019-08-24 12:54 | P.PN_ITS ---
Subjective Subjective: Interval history: Admitted overnight. H&P and labs noted. Patient states he is feeling a lot better now. Stool studies still not been sent. Patient is anxious to go home. Denies of any nausea, vomiting, headache. Vitals/I&O/Wt Last Vital Signs Temp 98.2 F 08/24/19 12:00 Pulse 56 L 08/24/19 12:00 Resp 20 H 08/24/19 12:00 BP 148/70 08/24/19 12:00 Pulse Ox 98 08/24/19 12:00 08/23/19 08/24/19 08/24/19 22:59 06:59 14:59 Intake Total 1000 / 1000 Output Total 600 / 600 Balance 400 / 400 Weight last 48 hrs Weight 58.967 kg Physical Exam Narrative: EXAM NARRATIVE: General: No acute distress, AO x3 HEENT: PERRLA, pupils bilaterally equal and reactive Chest: Normal vesicular breath sounds, no added sounds, equal good air entry bilaterally CVS: S1-S2 regular, no murmurs, no tachycardia, no gallops, no rubs Abdomen: Soft, nontender, no organomegaly, bowel sounds present Neuro: No focal deficits, no facial deformity, AO x3, power 5/5 in all limbs Data : 08/24/19 02:58 08/24/19 04:51 Micro: Microbiology 08/23/19 22:13 Blood Culture - Preliminary Blood SPECIMEN COLLECTED 08/23/19 22:12 Blood Culture - Preliminary Blood SPECIMEN COLLECTED A&P Assessment and plan (1) Duodenitis: Status: Acute (2) Enteritis: Status: Acute (3) Prostatitis: Status: Acute (4) Nausea and vomiting: Status: Acute Additional A&P Information Duodenitis/enteritis: Present on CT scan. Recent use of Levaquin for prostatitis. Stool studies awaited. We will have to rule out C. difficile. For now continue with Zosyn. If C. difficile is negative will most likely discharge patient today on Levaquin and Flagyl. Start patient on GI soft diet and see how he does. Prostatitis: Urine culture done on August 20 consistent with pansensitive E. coli. Zosyn would cover for E. coli adequately. Check gonorrhea chlamydia. Persistent hematuria and BPH: Hough catheter draining concentrated urine Tamsulosin, PSA 17 Outpatient follow-up with Dr. Tellez for persistent hematuria and urine retention Former smoker Full code GI soft diet DVT prophylaxis Lovenox If patient C. difficile is negative can plan to discharge him on Levaquin and Flagyl. Attestations Medical Necessity Statement*: Enteritis, rule out C. difficile Time Spent in Patient Care: Greater than 35 minutes (>than 50% of time spent in counselling and/or direct pt care on unit) . Coding Level of Care Code Acute [employer] for [facility] Fwd Diagnoses Duodenitis K29.80 Enteritis K52.9 Prostatitis N41.9 Nausea and vomiting R11.2
[2019-08-24 13:26] LABS: Procalcitonin 0.25 ng/mL (0-0.5)
[2019-08-24 13:27] LABS: Thyroid Stimulating Hormone 2.33 uIU/mL (0.27-4.20)
[2019-08-24 13:38] LABS: Iron 57 ug/dL (59-158); Percent Saturation 29.6 % (20-50); Total Iron Binding Capacity 192 mcg/dl; Unsaturated Iron Binding 135 ug/dL (112-347)
--- NOTE | 2019-08-24 17:24 | P.DS_ITS ---
Discharge Providers Date of Admission: 08/24/19 00:59 Date of Discharge: August 24, 2019 Attending Provider at Admission: Frankie Rand MD Attending Provider at Discharge: David Betancourt MD Primary Care Provider: Eleanor Clark MD Diagnoses at Discharge Discharge Diagnosis (1) Duodenitis: Status: Acute (2) Enteritis: Status: Acute (3) Prostatitis: Status: Acute (4) Nausea and vomiting: Status: Acute Reason for Visit Reason for Visit: GENERAL WEAKNESS/ FEVER Hospital Course Discharge Summary: Mika Alexander is a 59 year old male does not carry significant past medical history other than recent acute prostatitis episode came in with chief complaint of worsening abdominal pain. Patient is stating that he has been having chronic pelvic pain which got worse recently for which she was evaluated by his PCP on , Hough catheter was placed because of urine retention he was started on Levaquin for possible prostatitis. He has taken antibiotics only for 2 days, yesterday he started experiencing loose stools, he has had multiple episodes, on his temperature was 102, on Sunday 101, he was trying to avoid coming to the hospital. Because of worsening abdominal pain and cramps he decided to come to the ED today. He has been feeling nauseous, only experienced one episode of emesis. He is denying smoking cigarettes or using marijuana. Does not drink alcohol. Today he has been afebrile. Patient is stating that he mostly stays home and he has not been exposed to sick patients. Diagnostics in the ER revealed blood pressure 159 systolic, afebrile, leukocyte 8.3, lactic 1.4, CRP 96, PSA [address] abdomen revealed enteritis/duodenitis without perforation or free air. He was admitted to floor. Started on Zosyn, C.diff was ruled out. Patient felt a lot better and wanted to leave as he had to take care of his and was feeling anxious. He was explained risk factors and danger signs of entritis. He verbalized understanding. He is being d/oscar on levo and flagyl for 10 days course for entritis and prostatitis. He is adviced to f/u with Dr. Tellez for hematuria. Chlamydia and gonorrhea has been sent. For details refer to my progress note Physical Exam Narrative: EXAM NARRATIVE: General: No acute distress, AO x3 HEENT: PERRLA, pupils bilaterally equal and reactive Chest: Normal vesicular breath sounds, no added sounds, equal good air entry bilaterally CVS: S1-S2 regular, no murmurs, no tachycardia, no gallops, no rubs Abdomen: Soft, nontender, no organomegaly, bowel sounds present Neuro: No focal deficits, no facial deformity, AO x3, power 5/5 in all limbs Discharge Data Data Completed and Pending: Completed Studies During Hospitalization Category Date Time Status CT abdomen pelvis w con* [id number] Urge nt Cat Scan 08/23/19 21:55 Completed XR chest 1V cheryle ble [id number] Urgent Exams 08/23/19 21:47 Completed Pending at discharge Category Date Time Status Blood Culture Sta t Lab 08/23/19 22:13 Results Chlamydia / Gonor yvonne Panel Stat Lab 08/24/19 16:00 Received Clostridioides Di fficile PCR Routin e Lab 08/24/19 12:56 Results Complete Blood Co unt w/Auto AM LABS Lab 08/25/19 04:00 Ordered Comprehensive Met abolic Panel AM LA BS Lab 08/25/19 04:00 Ordered Enteric Bacterial Panel by PCR Rout ine Lab 08/24/19 12:56 Results Enteric Parasite Panel by PCR Routi ne Lab 08/24/19 12:56 Results Immunochemical Fe fabrice OCB Routine Lab 08/24/19 12:56 Results Lactoferrin Routi ne Lab 08/24/19 12:56 Results MRSA by PCR Routi ne Lab 08/24/19 12:46 Uncollected Urine Culture Sta t Lab 08/23/19 23:23 Received Labs from last 24 hours 08/24/19 08/24/19 08/24/19 04:51 04:51 04:51 WBC RBC Hgb Hct MCV MCH MCHC RDW Plt Count MPV Neut % (Auto) Lymph % (Auto) [place] % (Auto) Eos % (Auto) Baso % (Auto) Neut # (Auto) Lymph # (Auto) [place] # (Auto) Eos # (Auto) Baso # (Auto) Nucleated RBC % (a uto) Nucleated RBCs # Sodium 139 Potassium 3.7 Chloride 106 Carbon Dioxide 22 Anion Gap 14.7 BUN 10 Creatinine 0.8 GFR Calculation 99.6 Glucose 115 Calculated Osmolal ity 285 Lactate Calcium 8.5 Iron 57 L TIBC 192 % Saturation 29.6 Unsat Iron Binding 135 Total Bilirubin 0.4 AST 11 ALT 6 Alkaline Phosphata se 63 C-Reactive Protein Total Protein 5.7 L Albumin 3.1 L Globulin 2.6 Procalcitonin 0.25 TSH 2.33 Urine Color Urine Appearance Urine pH Ur Specific Gravit y Urine Protein Urine Glucose (UA) Urine Ketones Urine Blood Urine Nitrate Urine Bilirubin Urine Urobilinogen Ur Leukocyte Samantha ase Urine RBC Urine WBC Ur Squamous Epith Cells Ur Transition Epit h Cell Amorphous Sediment Urine Bacteria Urine Mucus 08/24/19 08/23/19 08/23/19 02:58 23:23 22:12 WBC 7.5 RBC 3.87 L Hgb 11.1 L Hct 34.7 L MCV 89.7 MCH 28.7 MCHC 32.0 RDW 12.8 Plt Count 193 MPV 10.3 Neut % (Auto) 69.6 Lymph % (Auto) 20.1 [place] % (Auto) 9.4 Eos % (Auto) 0.3 Baso % (Auto) 0.3 Neut # (Auto) 5.2 Lymph # (Auto) 1.5 [place] # (Auto) 0.7 Eos # (Auto) 0.0 Baso # (Auto) 0.0 Nucleated RBC % (a uto) 0 Nucleated RBCs # 0.0 Sodium Potassium Chloride Carbon Dioxide Anion Gap BUN Creatinine GFR Calculation Glucose Calculated Osmolal ity Lactate 1.4 Calcium Iron TIBC % Saturation Unsat Iron Binding Total Bilirubin AST ALT Alkaline Phosphata se C-Reactive Protein Total Protein Albumin Globulin Procalcitonin TSH Urine Color [place] Urine Appearance Clear Urine pH 7 Ur Specific Gravit y 1.015 Urine Protein Not Reportable Urine Glucose (UA) Not Reportable Urine Ketones Not Reportable Urine Blood Not Reportable Urine Nitrate Not Reportable Urine Bilirubin Not Reportable Urine Urobilinogen Not Reportable Ur Leukocyte Samantha ase Not Reportable Urine RBC 80-100 H Urine WBC 5-10 H Ur Squamous Epith Cells None Ur Transition Epit h Cell None Amorphous Sediment Not Reportable Urine Bacteria 1+ H Urine Mucus 2+ 08/23/19 08/23/19 22:12 22:12 WBC 8.3 RBC 4.09 L Hgb 12.0 Hct 36.9 L MCV 90.2 MCH 29.3 MCHC 32.5 RDW 12.8 Plt Count 195 MPV 9.1 Neut % (Auto) 71.2 Lymph % (Auto) 18.9 [place] % (Auto) 9.3 Eos % (Auto) 0.2 Baso % (Auto) 0.2 Neut # (Auto) 5.9 Lymph # (Auto) 1.6 [place] # (Auto) 0.8 Eos # (Auto) 0.0 Baso # (Auto) 0.0 Nucleated RBC % (a uto) 0 Nucleated RBCs # 0.0 Sodium 139 Potassium 3.5 Chloride 102 Carbon Dioxide 20 L Anion Gap 20.5 H BUN 10 Creatinine 0.8 GFR Calculation 99.6 Glucose 104 Calculated Osmolal ity 284 L Lactate Calcium 8.9 Iron TIBC % Saturation Unsat Iron Binding Total Bilirubin 0.4 AST 12 ALT 7 Alkaline Phosphata se 75 C-Reactive Protein 96.1 H Total Protein 6.8 Albumin 3.7 Globulin 3.1 Procalcitonin TSH Urine Color Urine Appearance Urine pH Ur Specific Gravit y Urine Protein Urine Glucose (UA) Urine Ketones Urine Blood Urine Nitrate Urine Bilirubin Urine Urobilinogen Ur Leukocyte Samantha ase Urine RBC Urine WBC Ur Squamous Epith Cells Ur Transition Epit h Cell Amorphous Sediment Urine Bacteria Urine Mucus Vitals: Last Vital Signs Temp 98.6 F 08/24/19 15:26 Pulse 53 L 08/24/19 15:26 Resp 18 08/24/19 15:26 BP 164/80 08/24/19 15:26 Pulse Ox 94 08/24/19 15:26 Discharge Plan Discharge Patient Disposition: Home, Self-Care Condition: Stable Prescriptions: New metronidazole 500 mg tablet 500 mg PO Q8H 7 Days Qty: 21 RF: 0 Continued tamsulosin [Flomax] 0.4 mg capsule 0.4 mg PO DAILY RF: 0 trazodone 150 mg tablet 150 mg PO BEDTIME RF: 0 gabapentin 800 mg tablet See Rx Instructions .ROUTE .COMPLEX RF: 0 levofloxacin [Levaquin] 750 mg tablet 750 mg PO DAILY 7 Days Qty: 7 RF: 0 hydrocodone-acetaminophen 7.5-325 mg tablet 1 tab PO Q6H PRN (Reason: pain) Qty: 15 RF: 0 ondansetron HCl [Zofran] 4 mg tablet 4 mg PO Q6H PRN (Reason: nausea and vomiting) Qty: 14 RF: 0 Discharge Orders: Discharge Order (Routine); Ordered 08/24/19 Ordered By: David Betancourt Referrals: Joey Tellez MD [Physician] - 1 week (Call Dr. Javed's office to be seen in a week.) Eleanor Clark MD [Primary Care Provider] - 2 weeks (Follow up with Dr. Eleanor Clark in 2 weeks.) Discharge Diet: Advance as tolerated and GI Soft Discharge Activity: Resume usual activity Patient Instructions: Metronidazole (By mouth), Acute Nausea and Vomiting (DC) Activity Restrictions/Additional Instructions: Continue Levaquin to finish a 10-day course. Continue with Flagyl to finish a 7-day course. Follow-up with Dr. Tellez within next 2 weeks for hematuria. If Hough catheter remains in for more than 2 weeks please come to the ER to get Hough replaced. Discharge Attestations Time Spent in Discharge Care*: greater than 30 min Quality Metrics Clinical Quality Measures During this hospital stay, did patient experience: None Coding Level of Care Code Acute As[employer]er Seat for [facility] Fwd Diagnoses Duodenitis K29.80 Enteritis K52.9 Prostatitis N41.9 Nausea and vomiting R11.2
== END 2019-08-24 18:51 | disposition home or self-care (01) | DRG 392 ==
LOC: ER 21:42 → MEDSURG 08-24 01:22
PROVIDERS: Admitting Provider Internal Medicine; Emergency Provider Emergency Medicine; PCP Family Medicine; Visit Provider Student in an Organized Health Care Education/Training Program
DX: K52.9 Noninfective gastroenteritis and colitis, unspecified (principal); N41.0 Acute prostatitis; K29.80 Duodenitis without bleeding; G47.00 Insomnia, unspecified; N40.1 Benign prostatic hyperplasia with lower urinary tract symptoms; R33.8 Other retention of urine; Z87.891 Personal history of nicotine dependence
CPT/HCPCS: 12345; 36415; 51798; 71045; 74177; 80053; 81001; 81003; 82274; 83540; 83550; 83605; 83630; 84145; 84153; 84443; 85025; 86140; 87040; 87077; 87086; 87186; 87491; 87493; 87506; 87591; 96365; 96372; 96375; 99283; 99284; J1170; J1650; J1885; J1956; J2270; J2405; J2543; J7030; Q9967

== ENCOUNTER → 2020-02-04 10:14 | Outpatient (BNVA) | payer MEDICARE, MEDICAID, SELFPAY | PROVIDERS: PCP Family Medicine; Visit Provider Urology | DX: R33.9 Retention of urine, unspecified (principal); N31.9 Neuromuscular dysfunction of bladder, unspecified; Z12.5 Encounter for screening for malignant neoplasm of prostate | CPT/HCPCS: 81003; G0103 ==

== ENCOUNTER → 2020-03-19 11:47 | Outpatient (BNVA) | payer MEDICARE, MEDICAID, SELFPAY | PROVIDERS: PCP Family Medicine | DX: R53.83 Other fatigue (principal); G47.00 Insomnia, unspecified; Z68.23 Body mass index [BMI] 23.0-23.9, adult; F17.211 Nicotine dependence, cigarettes, in remission | CPT/HCPCS: 82607; 84403; 84443; 85025 ==

== ENCOUNTER 2020-09-28 11:38 | Outpatient (CLI) | payer MEDICARE, MEDICAID, SELFPAY | END 2020-09-28 11:39 | disposition home or self-care (01) | LOC: LAB 11-09 12:19 | PROVIDERS: PCP Family Medicine; Visit Provider Nurse Practitioner Family | DX: M54.18 Radiculopathy, sacral and sacrococcygeal region (principal) | CPT/HCPCS: 80053; 80061; 82306; 82607; 84443; 85025 ==

== ENCOUNTER 2020-10-13 15:29 | Outpatient (CLI) | payer MEDICARE, MEDICAID, SELFPAY ==
--- NOTE | 2020-10-13 15:35 | MR_ITS ---
WS: [id number] MRI SACRUM without CONTRAST. COMPARISON: 05/16/2010 Multiplanar, multisequence imaging is performed without contrast. Study is compromised by motion. No change in the sacral meningeal cyst at the S2-3 junction. Cyst extends over a length of 1.7 cm x 1 .4 cm transversely and is centered in the RIGHT sacral foramen. No marrow edema or fractures. Mild de generative disc disease and osteophytosis at the L5-S1 level was described in the recent MRI lumbar s pine report. Very minimal edema along the ilium side of the RIGHT SI joint. No erosions. No fractures or marrow ed jessica. Urinary bladder is overly distended. MR/MR sacrum wo con* [id number] IMPRESSION: 1. 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 2. Very minimal degenerative sacroiliitis involving the RIGHT SI joint.
--- NOTE | 2020-10-13 16:45 | MR_ITS ---
WS: [id number] MRI LUMBAR SPINE NONCONTRAST HISTORY: M54.18 - Radiculopathy, sacral and sacrococcygeal region, chronic pelvic pain with no injury . COMPARISON: 04/03/2012 TECHNIQUE: Sagittal and axial multisequence imaging is submitted. Benign hemangioma at L1. No fractures. Posterior alignment is normal. Mild disc space narrowing and desiccation at L4-5 and L5-S1. Conus terminates normally at L1-2 disc level. L1-L2: Normal. L2-L3: Normal. L3-L4: Mild ligamentum flavum hypertrophy and facet arthritis. No stenosis. L4-L5: Mild annular disc bulging with mild ligamentum flavum and facet hypertrophy. Disc and osteophy te encroaching into the LEFT neural foramen. Very mild LEFT foraminal narrowing. L5-S1: Mild diffuse annular disc bulging and osteophytic ridging. Disc and osteophyte encroachment in to the RIGHT foramen with only mild foraminal narrowing. Additional central disc protrusion with greg lar tear. No contact on the S1 nerve roots. Sacral meningeal cyst posterior to S2-3. Cyst measures 15 mm in length and is unchanged. MR/MR lumbar spine wo con* [id number] IMPRESSION: 1. No high-grade central or foraminal stenosis. 2. Mild LEFT foraminal stenosis at L4-5 and on the RIGHT at L5-S1 due to disc and osteophyte disease. Similar to the prior examination. 3. No change in the sacral meningeal cyst.
== END 2020-10-13 15:30 | disposition home or self-care (01) ==
LOC: RADSHAW 15:32
PROVIDERS: PCP Family Medicine; Visit Provider Nurse Practitioner Family
DX: M54.18 Radiculopathy, sacral and sacrococcygeal region (principal); M48.061 Spinal stenosis, lumbar region without neurogenic claudication; M25.78 Osteophyte, vertebrae
CPT/HCPCS: 72148; 80053; 80061; 82306; 82607; 84443; 85025

== ENCOUNTER → 2020-11-17 10:28 | Outpatient (BNVA) | payer MEDICARE, MEDICAID, SELFPAY | PROVIDERS: PCP Family Medicine; Visit Provider Nurse Practitioner | DX: M54.5 Low back pain (principal); M54.18 Radiculopathy, sacral and sacrococcygeal region; E61.1 Iron deficiency | CPT/HCPCS: 83540 ==

== ENCOUNTER → 2020-11-25 11:44 | Outpatient (BNVA) | payer MEDICARE, MEDICAID, SELFPAY | PROVIDERS: PCP Family Medicine; Referring Provider Nurse Practitioner; Visit Provider Physician Assistant | DX: M47.896 Other spondylosis, lumbar region (principal); M54.50 Low back pain, unspecified | CPT/HCPCS: 72100 ==

== ENCOUNTER → 2021-03-29 14:05 | Outpatient (BNVA) | payer MEDICARE, MEDICAID, SELFPAY | PROVIDERS: PCP Family Medicine; Visit Provider Urology | DX: Z12.5 Encounter for screening for malignant neoplasm of prostate (principal); N40.0 Benign prostatic hyperplasia without lower urinary tract symptoms; N31.9 Neuromuscular dysfunction of bladder, unspecified | CPT/HCPCS: 81003; G0103 ==

== ENCOUNTER → 2021-04-04 11:14 | Outpatient (BNVA) | payer MEDICARE, MEDICAID, SELFPAY | PROVIDERS: PCP Family Medicine; Visit Provider Nurse Practitioner | DX: E78.2 Mixed hyperlipidemia (principal); G47.00 Insomnia, unspecified; M51.36 Other intervertebral disc degeneration, lumbar region | CPT/HCPCS: 80053; 80061 ==

== ENCOUNTER → 2021-10-04 08:29 | Outpatient (BNVA) | payer MEDICARE, MEDICAID, SELFPAY | PROVIDERS: PCP Family Medicine; Visit Provider Nurse Practitioner | DX: G47.00 Insomnia, unspecified (principal); E78.2 Mixed hyperlipidemia; M51.36 Other intervertebral disc degeneration, lumbar region | CPT/HCPCS: 80053; 80061; 84443; 85025 ==

== ENCOUNTER → 2022-03-30 08:23 | Outpatient (BNVA) | payer MEDICARE, MEDICAID, SELFPAY | PROVIDERS: PCP Family Medicine; Visit Provider Urology | DX: N40.0 Benign prostatic hyperplasia without lower urinary tract symptoms (principal); N31.9 Neuromuscular dysfunction of bladder, unspecified | CPT/HCPCS: 51741; 51798; 81003; 99213 ==

== ENCOUNTER → 2022-04-03 08:18 | Outpatient (BNVA) | payer MEDICARE, MEDICAID, SELFPAY | PROVIDERS: PCP Nurse Practitioner; Visit Provider Nurse Practitioner | DX: G47.00 Insomnia, unspecified (principal); E78.2 Mixed hyperlipidemia; M54.18 Radiculopathy, sacral and sacrococcygeal region; Z12.5 Encounter for screening for malignant neoplasm of prostate | CPT/HCPCS: 80053; 80061; G0103 ==

== ENCOUNTER 2022-04-14 14:30 | Emergency (ER) | payer MEDICARE, MEDICAID, SELFPAY ==
[2022-04-14 14:50] VITALS: BP 169/98; PULSE 63; RESP 16; TEMP 36.4; O2SAT 95; BMI 21.3
--- NOTE | 2022-04-14 15:30 | ED_ITS ---
HPI - Wound/Laceration General: Chief Complaint: Wound/Laceration Stated Complaint: Left Hand injury Time Seen by Provider: 04/14/22 14:50 Source: patient Mode of arrival: ambulatory Limitations: no limitations History of Present Illness: Patient is a nice 61-year-old male who presents to ED today with evaluation for a left hand laceration that he sustained while using a boat driver. States a portion of the fence post ripped his skin. Tetanus is up-to-date. Onset (ago): hour(s) Extremity Location: Left: hand Place: home Patient tetanus UTD: Yes Context: accidental Associated symptoms: Reports no associated symptoms Review of Systems Musc: Reports: extremity pain (L hand); Denies: extremity swelling Skin/Breast: Reports: other (laceration/skin tear to L hand) Neuro: Denies: numbness in extremities or sensory changes PFSH ED PFSH: Medical History Acute prostatitis Back pain BPH (benign prostatic hyperplasia) Cyst of spinal meninges Fracture of thumb, right, closed Hematuria Hip pain Hyperlipidemia, mixed Incomplete bladder emptying Insomnia Iron deficiency Lumbar pain with radiation down both legs Nausea and vomiting Neuralgia pudendal and sacral Neurogenic bladder Normal colonoscopy 2013 Dr. Delarosa Statin intolerance Testicular pain Urinary retention Please placed Hough catheter 08/28 Surgical History H/O elbow surgery Right elbow reconstruction H/O thumb surgery Family History Father , at age 74 Cancer colon Mother Cancer colon Denies family history of Hyperlipidemia Lung disease Hypertension Social History Smoking and tobacco status: former smoker (Quit 4 years ago. Smoked 40 years) Second hand smoke exposure: No Smoking risk assessment/counseling performed?: No Alcohol intake: never Desire information about alcohol rehabilitation?: No Counseling given: No Desire information about substance/drug rehabilitation?: No Counseling given: No Adopted: No Caregiver/support person: No Lives independently: Yes Household members: spouse Housing: House Marital status: service: No Current occupational status: disabled Current gender identity: Male Physical Exam Const: COMMON NORMALS: no acute distress, average body habitus, patient oriented x3, no limitations, healthy appearing, alert and well nourished Extremity: COMMON NORMALS: full ROM and capillary refill normal GENERAL: Yes normal exam except as noted LEFT UPPER EXTREMITY: Yes hand & digits Left hand and digits: Yes neurovascular exam (normal) OTHER: flap laceration noted to L palmar eminence region; no tendon involvement; NV intact; no bony tenderness Neuro: COMMON NORMALS: patient oriented x3, moves all extremities, no focal motor deficits and no sensory deficits noted SENSORIUM/ORIENTATION: Yes alert Procedures Laceration Laceration 1: Site: hand Side (If applicable): left Size (cm): 2.0 Description: flap Depth: simple, single layer Local Anesthetic: lidocaine 1% Amount of anesthesia used (mL): 2.0 Pre-repair: wound explored and irrigated extensively Skin layer closed with: nylon Size (cm): 5-0 Number of sutures: 4 Technique: simple, interrupted Course Vital Signs: Vital signs: Vital Signs Temperature 97.6 F 04/14/22 14:50 Pulse Rate 63 04/14/22 14:50 Respiratory Rate 16 04/14/22 14:50 Blood Pressure 169/98 04/14/22 14:50 Pulse Oximetry 95 04/14/22 14:50 Oxygen Delivery Me thod 04/14/22 14:50 MDM - Wound/Laceration Medical Decision Making Wound irrigated and repaired as documented. Wound care and flexion precautions discussed. Discharge Plan Discharge Patient Disposition: Home Clinical Impression: Laceration of left hand Qualifiers: Encounter type: initial encounter Foreign body presence: without foreign body Qualified Code(s): S61.412A - Laceration without foreign body of left hand, initial encounter Condition: Stable Prescriptions: No Action saw palmetto 320 mg capsule 320 mg PO .QOD Rx Instructions: give with food (meal/snack) tamsulosin 0.4 mg capsule 0.4 mg PO .2 times day gabapentin 800 mg tablet See Rx Instructions .ROUTE .COMPLEX Qty: 300 5RF Rx Instructions: 1,600mg AM, 800mg noon, 1,600mg PM; trazodone 150 mg tablet 150 mg PO .at bedtime Qty: 30 5RF Discharge Orders: Discharge ED (Routine); Ordered 04/14/22 Ordered By: Becky Jara Referrals: Darren Saunders, [facility] [Primary Care Provider] - Patient Instructions: Laceration (DC) Activity Restrictions/Additional Instructions: Keep wound/laceration clean with warm soap and water twice daily. Monitor for signs of infection such as redness, swelling, increased pain, or drainage. Please seek medical re-evaluation if these occur. If you received sutures today these will need to be removed (unless you were told by the provider that they are absorbable). The provider should have discussed with you the length of time until removal-7 DAYS. You may return to the emergency department for this service. If your wound was closed with Steri-Strips or glue/adhesive these will fall off within the next week or so. Coding Level of Care Code ED Glass Loading Equipment Tender for Kayla Garza
[2022-04-14 16:07] VITALS: PULSE 81; RESP 18; O2SAT 99
== END 2022-04-14 16:09 | disposition home or self-care (01) ==
PROVIDERS: Emergency Provider Physician Assistant; PCP Nurse Practitioner
DX: S61.412A Laceration without foreign body of left hand, initial encounter (principal); Z87.891 Personal history of nicotine dependence; X58.XXXA Exposure to other specified factors, initial encounter
CPT/HCPCS: 12001; 99282

== ENCOUNTER → 2022-05-18 09:51 | Outpatient (BNVA) | payer MEDICARE, MEDICAID, SELFPAY | PROVIDERS: PCP Nurse Practitioner; Visit Provider Nurse Practitioner | DX: R05.9 Cough, unspecified (principal) | CPT/HCPCS: 71046; 80053; 85025 ==

== ENCOUNTER → 2022-10-11 10:56 | Outpatient (BNVA) | payer MEDICARE, MEDICAID, SELFPAY | PROVIDERS: PCP Nurse Practitioner; Visit Provider Nurse Practitioner | DX: M54.2 Cervicalgia (principal) | CPT/HCPCS: 72040; 72072 ==

== ENCOUNTER → 2023-03-20 14:54 | Outpatient (BNVA) | payer MEDICARE, MEDICAID, SELFPAY | PROVIDERS: PCP Nurse Practitioner; Visit Provider Nurse Practitioner | DX: N40.0 Benign prostatic hyperplasia without lower urinary tract symptoms (principal); G47.00 Insomnia, unspecified; E78.2 Mixed hyperlipidemia | CPT/HCPCS: 80053; 80061; 84443; 85025 ==

== ENCOUNTER → 2023-09-03 08:36 | Outpatient (BNVA) | payer MEDICARE, MEDICAID, SELFPAY | PROVIDERS: PCP Nurse Practitioner; Visit Provider Nurse Practitioner | DX: E78.2 Mixed hyperlipidemia (principal); Z12.5 Encounter for screening for malignant neoplasm of prostate; J42 Unspecified chronic bronchitis; N40.0 Benign prostatic hyperplasia without lower urinary tract symptoms; G47.00 Insomnia, unspecified; T63.461A Toxic effect of venom of wasps, accidental (unintentional), initial encounter | CPT/HCPCS: 80053; 80061; G0103 ==

== ENCOUNTER → 2024-02-11 09:20 | Outpatient (BNVA) | payer MEDICARE, MEDICAID, SELFPAY | PROVIDERS: PCP Nurse Practitioner; Visit Provider Nurse Practitioner | DX: E78.2 Mixed hyperlipidemia (principal); J42 Unspecified chronic bronchitis; N40.0 Benign prostatic hyperplasia without lower urinary tract symptoms; G47.00 Insomnia, unspecified; N40.1 Benign prostatic hyperplasia with lower urinary tract symptoms; R39.11 Hesitancy of micturition | CPT/HCPCS: 80053; 80061; 85025 ==

== ENCOUNTER → 2024-07-28 08:34 | Outpatient (BNVA) | payer MEDICARE, MEDICAID, SELFPAY | PROVIDERS: PCP Nurse Practitioner; Visit Provider Nurse Practitioner | DX: E78.2 Mixed hyperlipidemia (principal); E55.9 Vitamin D deficiency, unspecified; Z12.5 Encounter for screening for malignant neoplasm of prostate; E61.1 Iron deficiency | CPT/HCPCS: 80053; 80061 ==

== ENCOUNTER → 2024-10-23 09:42 | Outpatient (BNVA) | payer MEDICARE, MEDICAID, SELFPAY | PROVIDERS: PCP Nurse Practitioner; Visit Provider Clinical Nurse Specialist Adult Health | DX: S93.402A Sprain of unspecified ligament of left ankle, initial encounter (principal); S92.142A Displaced dome fracture of left talus, initial encounter for closed fracture; S82.62XA Displaced fracture of lateral malleolus of left fibula, initial encounter for closed fracture; W18.49XA Other slipping, tripping and stumbling without falling, initial encounter | CPT/HCPCS: 73610 ==

== ENCOUNTER → 2024-10-28 09:14 | Outpatient (BNVA) | payer MEDICARE, MEDICAID, SELFPAY | PROVIDERS: PCP Nurse Practitioner; Visit Provider Podiatrist Foot & Ankle Surgery | DX: S93.492A Sprain of other ligament of left ankle, initial encounter (principal); S82.832A Other fracture of upper and lower end of left fibula, initial encounter for closed fracture; X58.XXXA Exposure to other specified factors, initial encounter | CPT/HCPCS: 99204 ==

== ENCOUNTER → 2024-11-13 07:25 | Outpatient (BNVA) | payer MEDICARE, MEDICAID, SELFPAY | PROVIDERS: PCP Nurse Practitioner; Visit Provider Podiatrist Foot & Ankle Surgery | DX: S93.492A Sprain of other ligament of left ankle, initial encounter (principal); S82.832A Other fracture of upper and lower end of left fibula, initial encounter for closed fracture; X58.XXXA Exposure to other specified factors, initial encounter | CPT/HCPCS: 73610; 99213 ==

== ENCOUNTER → 2025-02-02 11:52 | Outpatient (BNVA) | payer MEDICARE, MEDICAID, SELFPAY | PROVIDERS: PCP Nurse Practitioner; Visit Provider Nurse Practitioner | DX: E55.9 Vitamin D deficiency, unspecified (principal); E78.2 Mixed hyperlipidemia; E61.1 Iron deficiency; Z12.5 Encounter for screening for malignant neoplasm of prostate | CPT/HCPCS: 80053; 80061; 82306; 83540; 85025; G0103 ==